=== PATIENT | female | born 1935 | race Caucasian/White ===

== ENCOUNTER 2018-06-08 08:56 | Emergency (ER) | payer MEDICARE, MEDICAID ==
[~2018-06-08] VITALS: Ht 162.6 cm; Wt 77.1 kg
[2018-06-08 09:26] LABS: HEMATOCRIT 39 % (35-52); HEMOGLOBIN 13.1 G/DL (11.5-16.0); LYMPHOCYTES % (AUTO) 16 % (12-44); MEAN CORPUSCULAR HEMOGLOBIN 30 PG (25-34); MEAN CORPUSCULAR HGB CONC 34 G/DL (32-36); MEAN CORPUSCULAR VOLUME 88 FL (80-99); NEUTROPHILS % (AUTO) 69 % (42-75); PLATELET COUNT 314 10^3/uL (130-400); RED CELL DISTRIBUTION WIDTH 13.3 % (10.0-14.5); WHITE BLOOD COUNT 10.6 10^3/uL (4.3-11.0)
[2018-06-08 09:27] LABS: BASOPHILS # (AUTO) 0.1 10^3/uL (0.0-0.1); BASOPHILS % (AUTO) 1 % (0-10); EOSINOPHILS # (AUTO) 0.4 10^3/uL (0.0-0.3); EOSINOPHILS % (AUTO) 4 % (0-10); LYMPHOCYTES # (AUTO) 1.7 X 10^3 (1.0-4.0); MONOCYTES % (AUTO) 10 % (0-12); NEUTROPHILS # (AUTO) 7.4 X 10^3 (1.8-7.8)
--- NOTE | 2018-06-08 09:44 | Diagnostic Imaging Report ---
INDICATION: Altered mental status Portable chest obtained at 9:19 a.m. There is cardiomegaly with central vascular congestion. There is some bibasilar infiltrate. There is no pneumothorax or gross pleural fluid. IMPRESSION: Cardiomegaly with central vascular congestion with some bibasilar infiltrates. Followup is recommended. Dictated by: Dictated on workstation # [id number]
[2018-06-08 09:45] VITALS: BP 139/71
--- NOTE | 2018-06-08 09:58 | Diagnostic Imaging Report ---
CLINICAL INDICATION: Patient with altered mental status. EXAM: Axial CT scan of the brain performed without IV contrast. COMPARISON: None. FINDINGS: There are diffuse patchy and confluent areas of low-attenuation white matter changes seen throughout both cerebral hemispheres with the left frontal lobe affected the most. 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 There is brain parenchymal volume loss with the cerebellum affected the most. There is no brain herniation or midline shift. There is no hydrocephalus. Basal cisterns are unremarkable. The extra cranial soft tissue, skull, and orbits are unremarkable. There is minimal ethmoid sinus mucosal thickening. 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 IMPRESSION: 1: There is no definite CT evidence of interval acute cerebral infarction, intracranial hemorrhage, or mass seen. Given the diffuse low attenuation changes throughout the brain parenchyma which can obscure more subtle findings, if there is clinical concern for acute cerebral infarction, MRI of the brain would better evaluate. 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 The results of this report were discussed with Dr. Shamar Lewis via the telephone on 06/08/2018 at 0940 hrs. Dictated by: Dictated on workstation # [id number]
[2018-06-08 10:02] LABS: PROTHROMBIN TIME PATIENT 13.4 SEC (12.2-14.7)
[2018-06-08 10:15] VITALS: BP 117/63
[2018-06-08 10:15] LABS: BILIRUBIN,TOTAL 0.4 MG/DL (0.1-1.0); CALCIUM 9.5 MG/DL (8.5-10.1); CREATININE SERUM 0.92 MG/DL (0.60-1.30); TOTAL PROTEIN 7.2 GM/DL (6.4-8.2)
[2018-06-08 10:45] VITALS: BP 117/54
[2018-06-08] MEDS ORDERED: LORA10TA7 PO (11:03)
[2018-06-08] MEDS ORDERED: LEVO88TA54 PO (11:03)
[2018-06-08] MEDS ORDERED: FLUT16SP22 (11:03)
[2018-06-08] MEDS ORDERED: OMEP20CA12 (11:03)
[2018-06-08] MEDS ORDERED: ATOR10TA66 PO (11:03)
[2018-06-08] MEDS ORDERED: ASPI-983 PO (11:03)
[2018-06-08] MEDS ORDERED: MECL-106 PO (11:03)
[2018-06-08] MEDS ORDERED: CITA20TA9 PO (11:03)
[2018-06-08] MEDS ORDERED: PRAM0.257 PO (11:03)
[2018-06-08] MEDS ORDERED: LORA1TAB PO (11:03)
[2018-06-08] MEDS ORDERED: LISI-552 PO (11:03)
[2018-06-08 11:07] LABS: CLARITY,URINE CLEAR; COLOR,URINE YELLOW; GLUCOSE, URINE (UA) NEGATIVE (NEGATIVE); PROTEIN,URINE NEGATIVE (NEGATIVE)
[2018-06-08 11:08] LABS: BILIRUBIN,URINE NEGATIVE (NEGATIVE); KETONES,URINE NEGATIVE (NEGATIVE); LEUKOCYTE ESTERASE ,URINE NEGATIVE (NEGATIVE); NITRITE,URINE NEGATIVE (NEGATIVE); SQUAMOUS EPITHELIAL CELL,UR 0-2 /HPF; UROBILINOGEN,URINE 0.2 MG/DL (NORMAL); WBC,URINE 0-2 /HPF
--- NOTE | 2018-06-08 12:07 | ED General ---
General Chief Complaint: Altered Mental Status Stated Complaint: RT ARM PAIN Nursing Triage Note: PT FELL AT HOME AND THE RP STATEDSHE WAS NOT USING HER RIGHT ARM AFTER THE FALL. PT ARRIVEDAND WAS USING ALL LIMBS AND ALLERT AND ORIENTED X 4. Nursing Sepsis Screen: No Definite Risk Source of Information: Patient, Caregiver, EMS, Family Exam Limitations: Language Barrier, Physical Impairments, Other (hard of hearing) History of Present Illness Date Seen by Provider: Jun 08, 2018 Time Seen by Provider: 09:00 Initial Comments Patient is a 82-year-old female who is hard of hearing with impaired speech who presents with accidental fall from standing. Patient states her left leg gave out while she was using her walker. She reports fall but denies hitting her head , headache loss of consciousness or injury. She denies acute motor weakness or loss of sensation, dizziness lightheadedness, chest pain pain palpitations or shortness of breath preceding event. He states her left leg frequently gives out. 911 contacted for lift assist. EMS states that patient was not acting right according to nieces description. Stroke activation on patient ED arrival. According to additional family including daughter at bedside, patient is at baseline mental status.. Timing/Duration: 1/2 Hour Modifying Factors: improves with Movement Associated Systoms: Denies Symptoms Allergies and Home Medications Allergies Coded Allergies: No Known Drug Allergies (Unverified , 06/08/18) Home Medications Aspirin 81 Mg Tablet.dr, 81 MG PO DAILY, (Reported) Atorvastatin Calcium 10 Mg Tablet, 10 MG PO DAILY, (Reported) Citalopram Hydrobromide 20 Mg Tablet, 20 MG PO DAILY, (Reported) Lisinopril 20 Mg Tablet, 10 MG PO DAILY, (Reported) Loratadine 10 Mg Tablet, 10 MG PO DAILY, (Reported) Lorazepam 1 Mg Tablet, 1 MG PO PRN, (Reported) Meclizine HCl 25 Mg Tablet, 25 MG PO TID, (Reported) Pramipexole Di-HCl 0.25 Mg Tablet, 0.25 MG PO DAILY, (Reported) Patient Home Medication List Home Medication List Reviewed: Yes Review of Systems Review of Systems Constitutional: no symptoms reported EENTM: see HPI Respiratory: no symptoms reported Cardiovascular: no symptoms reported Gastrointestinal: no symptoms reported Genitourinary: no symptoms reported Musculoskeletal: no symptoms reported, see HPI, joint pain Psychiatric/Neurological: No Symptoms Reported Hematologic/Lymphatic: No Symptoms Reported Immunological/Allergic: no symptoms reported Past Jzoxqpi-Exiuyh-Plqwdw Hx Past Med/Social Hx: Reviewed Nursing Past Med/Soc Hx Patient Social History Alcohol Use: Denies Use Recreational Drug Use: No Smoking Status: Former Smoker 2nd Hand Smoke Exposure: Yes Recent Foreign Travel: No Contact w/Someone Who Travel: No Recent Infectious Disease Expo: No Recent Hopitalizations: No Physical Abuse: No Sexual Abuse: No Mistreated: No Fear: No Seasonal Allergies Seasonal Allergies: No Past Medical History Adenoidectomy, Hysterectomy, Joint Replacement, Tonsillectomy Respiratory: No Cardiac: No 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 oz. 77.944222yh; BMI Method:Stated General Appearance: No Apparent Distress Eyes: Bilateral Eye Normal Inspection, Bilateral Eye PERRL, Bilateral Eye EOMI HEENT: PERRL/EOMI Neck: Full Range of Motion Respiratory: Chest Non Tender, Lungs Clear Cardiovascular: Regular Rate, Rhythm Gastrointestinal: Normal Bowel Sounds, No Organomegaly, No Pulsatile Mass, Non Tender, Soft Rectal: Normal Exam Neurologic/Psychiatric: Alert, Oriented x3, No Motor/Sensory Deficits; No Abnormal Gait Skin: Normal Color Progress/Results/Core Measures Suspected Sepsis Recent Fever Within 48 Hours: No Infection Criteria Present: None New/Unexplained Altered Menta: No Sepsis Screen: No Definite Risk SIRS Temperature:98.6 Pulse: 62 Respiratory Rate: 18 Laboratory Tests 06/08/18 09:00: White Blood Count 10.6 Blood Pressure 117 /54 Mean: 75 Laboratory Tests 06/08/18 09:00: Platelet Count 314 06/08/18 09:35: Creatinine 0.92, INR Comment 1.0, Total Bilirubin 0.4 Results/Orders Lab Results Laboratory Tests Test 06/08/18 09:00 06/08/18 09:35 06/08/18 10:22 Range/Units White Blood Count 10.6 4.3-11.0 10^3/uL Red Blood Count 4.39 4.35-5.85 10^6/uL Hemoglobin 13.1 11.5-16.0 G/DL Hematocrit 39 35-52 % Mean Corpuscular Volume 88 80-99 FL Mean Corpuscular Hemoglobin 30 25-34 PG Mean Corpuscular Hemoglobin Concent 34 32-36 G/DL Red Cell Distribution Width 13.3 10.0-14.5 % Platelet Count 314 130-400 10^3/uL Mean Platelet Volume 11.0 H 7.4-10.4 FL Neutrophils (%) (Auto) 69 42-75 % Lymphocytes (%) (Auto) 16 12-44 % Monocytes (%) (Auto) 10 0-12 % Eosinophils (%) (Auto) 4 0-10 % Basophils (%) (Auto) 1 0-10 % Neutrophils # (Auto) 7.4 1.8-7.8 X 10^3 Lymphocytes # (Auto) 1.7 1.0-4.0 X 10^3 Monocytes # (Auto) 1.0 0.0-1.0 X 10^3 Eosinophils # (Auto) 0.4 H 0.0-0.3 10^3/uL Basophils # (Auto) 0.1 0.0-0.1 10^3/uL Prothrombin Time 13.4 12.2-14.7 SEC INR Comment 1.0 0.8-1.4 Activated Partial Thromboplast Time 26 24-35 SEC Sodium Level 134 L 135-145 MMOL/L Potassium Level 5.0 3.6-5.0 MMOL/L Chloride Level 98 98-107 MMOL/L Carbon Dioxide Level 17 L 21-32 MMOL/L Anion Gap 19 H 5-14 MMOL/L Blood Urea Nitrogen 13 7-18 MG/DL Creatinine 0.92 0.60-1.30 MG/DL Estimat Glomerular Filtration Rate 59 BUN/Creatinine Ratio 14 Glucose Level 91 70-105 MG/DL Calcium Level 9.5 8.5-10.1 MG/DL Corrected Calcium 9.5 8.5-10.1 MG/DL Total Bilirubin 0.4 0.1-1.0 MG/DL Aspartate Amino Transf (AST/SGOT) 20 5-34 U/L Alanine Aminotransferase (ALT/SGPT) 19 0-55 U/L Alkaline Phosphatase 77 40-136 U/L B-Type Natriuretic Peptide 311.8 H <100.0 PG/ML Total Protein 7.2 6.4-8.2 GM/DL Albumin 4.0 3.2-4.5 GM/DL Urine Color YELLOW Urine Clarity CLEAR Urine pH 7.0 5-9 Urine Specific [place] <1.005 1.016-1.022 Urine Protein NEGATIVE NEGATIVE Urine Glucose (UA) NEGATIVE NEGATIVE Urine Ketones NEGATIVE NEGATIVE Urine Nitrite NEGATIVE NEGATIVE Urine Bilirubin NEGATIVE NEGATIVE Urine Urobilinogen 0.2 NORMAL MG/DL Urine Leukocyte Esterase NEGATIVE NEGATIVE Urine RBC (Auto) 2+ H NEGATIVE Urine RBC 10-25 H /HPF Urine WBC 0-2 /HPF Urine Squamous Epithelial Cells 0-2 /HPF Urine Crystals NONE /LPF Urine Bacteria NONE /HPF Urine Casts NONE /LPF Urine Mucus NEGATIVE /LPF Urine Culture Indicated NO My Orders Orders - TRUNG BARRERA DO Ct Head Wo-R/O Stroke (06/08/18 09:05) Cbc With Automated Diff (06/08/18 09:05) Comprehensive Metabolic Panel (06/08/18 09:05) Protime With Inr (06/08/18 09:05) Partial Thromboplastin Time (06/08/18 09:05) Ekg Tracing (06/08/18 09:05) Ua Culture If Indicated (06/08/18 09:05) Chest 1 View Ap/Pa Only (06/08/18 09:05) Accucheck Fasting (06/08/18 09:05) Thyroid Stimulating Hormone (06/08/18 09:09) BNP (06/08/18 11:09) Furosemide Injection (Lasix Injection) (06/08/18 12:15) Vital Signs/I&O 06/08/18 06/08/18 06/08/18 06/08/18 08:56 09:45 10:15 10:45 Temp 98.6 Pulse 72 64 62 62 Resp 18 18 16 18 B/P (MAP) 127/61 (83) 139/71 (93) 117/63 (81) 117/54 (75) Pulse Ox 94 94 94 O2 Delivery Room Air Room Air Room Air Room Air Capillary Refill : Less Than 3 Seconds Blood Pressure Mean: 75 ECG Initial ECG Rhythm: Normal Sinus Initial ECG Intervals: Normal Initial ECG Impression: Normal Diagnostic Imaging Diagonstic Imaging: Xray (possible pulmonary vascular congestion), CT (no acute intracranial findings per radiology report) Departure Communication (Admissions) Patient does not have any acute injury or focal neurologic deficits suggestive of stroke.. Lab work reviewed and is relatively benign with the exception of mild pulmonary vascular congestion on chest x-ray and an elevation of BNP. Patient is not dyspneic, hypoxic and has clear breath sounds. Only confirm that she has a prior diagnosis of congestive heart failure. Single dose of Lasix given. Patient is able to ambulate with a steady gait during the ED stay. Will discharge home with PCP follow-up in 2 days for reevaluation. Return depressions reviewed. Family verbalized understanding. Discharge instructions prior to departure. Pseudomonal Risk: No known risk Impression Primary Impression: Altered mental status, unspecified Additional Impression: Congestive heart failure Disposition: 01 HOME, SELF-CARE Condition: Stable Departure-Patient Inst. Referrals: CAMRON CLEMENT DO (PCP) Primary Care Physician Add. Discharge Instructions: Please take newly prescribed medication as directed and follow-up with your PCP in 2 days for reevaluation. Continue to use home walker. Return to the ED if there are worsening symptoms. All discharge instructions reviewed with patient and/or family. Voiced understanding. Scripts Furosemide (Lasix) 20 Mg Tablet 20 MG PO BID WITH MEALS PRN for SHORTNESS OF BREATH, #4 TAB Prov: TRUNG BARRERA DO 06/08/18 TRUNG BARRERA DO Jun 08, 2018 12:07
[2018-06-08] MEDS ORDERED: FURO-125 PO (12:14)
[2018-06-08] MEDS ORDERED: FUROSEMIDE 40 MG/4 ML INJ (LASIX) IVP ONE (12:15)
[2018-06-08 12:30] VITALS: BP 138/72
== END 2018-06-08 12:30 | disposition home or self-care (01) ==
LOC: EDUNIT# 08:56 → ER FS 08:57
DX: R41.82 Altered mental status, unspecified (principal); I50.9 Heart failure, unspecified; F41.9 Anxiety disorder, unspecified; F32.9 Major depressive disorder, single episode, unspecified; Z79.82 Long term (current) use of aspirin; Z87.891 Personal history of nicotine dependence; Z90.89 Acquired absence of other organs; Z90.710 Acquired absence of both cervix and uterus; Z85.038 Personal history of other malignant neoplasm of large intestine
CPT/HCPCS: 36415; 70450; 71045; 80053; 81000; 83880; 84443; 85025; 85610; 85730

== ENCOUNTER 2020-02-03 13:48 | Emergency (ER) | payer MEDICARE, MEDICAID ==
[~2020-02-03] VITALS: Ht 162.6 cm; Wt 81.8 kg
[2020-02-03] MEDS ORDERED: morphine INJ 10 MG/ML 1ML (SYR OR VIAL) IVP STA (13:58)
[2020-02-03] MEDS ORDERED: ONDANSETRON 4 MG/2 ML (SDV) Z0FRAN IVP ONE (14:00)
--- NOTE | 2020-02-03 14:02 | ED Fall/Injury ---
General Stated Complaint: FALL Source: patient, RN/MD, EMS, RN notes reviewed, EMS notes reviewed, old records Exam Limitations: no limitations, language barrier History of Present Illness Date Seen by Provider: Feb 03, 2020 Time Seen by Provider: 13:55 Initial Comments This patient is a 89-year-old female with a history of falls a history of left hip fracture in the past presents to the emergency department with fall. Patient was found sitting on her bottom on the floor. It fell out of her chair. Patient does have an outwardly rotated left lower extremity with pain to the left hip. We'll do medical evaluation treatment is needed. Occurred: just prior to arrival Injuries/Pain Location: lower extremity Context: unknown, lost balance Loss of Consciousness: no loss of consciousness Allergies and Home Medications Allergies Coded Allergies: No Known Drug Allergies (Unverified , 06/08/18) Home Medications Albuterol Sulfate 2.5 Mg/0.5 Ml Vial.neb, 2.5 MG NEB Q6H, (Reported) MIXES ALBUTEROL AND IPRATROPIUM TOGETHER IN THE NEBULIZER FOR EACH TREATMENT Aspirin 81 Mg Tablet.dr, 81 MG PO DAILY, (Reported) Atorvastatin Calcium 10 Mg Tablet, 10 MG PO HS, (Reported) Cefdinir 300 Mg Capsule, 300 MG PO BID Prescribed by: LAURIE MARTÍNEZ on 11/14/19 1044 Citalopram Hydrobromide 20 Mg Tablet, 20 MG PO HS, (Reported) Fluticasone Propionate 16 Gm [place].susp, 1 SPRAY NSEACH DAILY, (Reported) Ipratropium [place] 0.2 Mg/1 Ml Solution, 0.2 MG IH Q6H, (Reported) MIXES ALBUTEROL AND IPRATROPIUM TOGETHER IN THE NEBULIZER FOR EACH TREATMENT Levothyroxine Sodium 88 Mcg Tablet, 88 MCG PO DAILY, (Reported) Lisinopril 20 Mg Tablet, 20 MG PO DAILY, (Reported) Loratadine 10 Mg Tablet, 10 MG PO DAILY, (Reported) Lorazepam 1 Mg Tablet, 1 MG PO Q8H PRN for ANXIETY, (Reported) Omeprazole 20 Mg Capsule.dr, 20 MG PO DAILY, (Reported) Pramipexole Di-HCl 0.25 Mg Tablet, 0.25 MG PO HS, (Reported) Patient Home Medication List Home Medication List Reviewed: Yes Review of Systems Review of Systems Constitutional: No no symptoms reported; see HPI; No chills, No diaphoresis, No dizziness, No fever, No malaise, No weakness, No weight gain, No weight loss, No other Eyes: Denies No Symptoms Reported, Denies See HPI, Denies Blindness, Denies Blurred Vision, Denies Drainage, Denies Decreased Acuity, Denies Foreign Body Sensation, Denies Inflammation, Denies Pain, Denies Photophobia, Denies Previous Injury, Denies Shadows, Denies Tunnel Vision, Denies Vision Changes, Denies Contact Lenses, Denies Glasses, Denies Other Ears, Nose, Mouth, Throat: denies no symptoms reported, denies see HPI, denies ear pain, denies ear discharge, denies nose pain, denies nose discharge, denies epistaxis, denies mouth pain, denies mouth swelling, denies loose teeth, denies throat pain, denies throat swelling Respiratory: No no symptoms reported, No see HPI, No cough, No dyspnea on exertion, No hemoptysis, No orthopnea, No phlegm, No short of breath, No stridor, No wheezing, No other Cardiovascular: No no symptoms reported, No see HPI, No chest pain, No edema, No Hx of Intervention, No palpitations, No syncope, No vascular heart diseas, No other Gastrointestinal: No RUQ, No LUQ, No RLQ, No LLQ, No no symptoms reported, No see HPI, No abdominal pain, No constipation, No diarrhea, No dysphagia, No hematemesis, No heartburn, No jaundice, No loss of appetite, No melena, No nausea, No vomiting, No other Musculoskeletal: see HPI, joint pain ( rotated and shortened left lower extremity. 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 oz. 77.921675ze; 32.50 BMI Method:Stated General Appearance: WD/WN, no apparent distress Cardiovascular: normal peripheral pulses, regular rate, rhythm, no edema, no gallop, no JVD, no murmur Respiratory: chest non-tender, lungs clear, normal breath sounds, no respiratory distress, no accessory muscle use Gastrointestinal: normal bowel sounds, non tender, soft, no organomegaly, no pulsatile mass Pelvic: normal external exam, normal adnexa, no cerv. motion tender, no masses Extremities: other (decreased range of motion outward rotation of the left lower leg along and shortened. Pain with palpation to the left hip) Progress/Results/Core Measures Results/Orders Lab Results Laboratory Tests Test 02/03/20 14:48 Range/Units My Orders Orders - YUNIOR MUÑOZ MD Cbc With Automated Diff (02/03/20 13:58) Comprehensive Metabolic Panel (02/03/20 13:58) Ed Iv/Invasive Line Start (02/03/20 13:58) Ekg Tracing (02/03/20 13:58) Chest 1 View Ap/Pa Only (02/03/20 13:58) Pelvis With Left Hip 2-3 View (02/03/20 13:58) Morphine Injection (Morphine Injection (02/03/20 13:58) Ondansetron Injection (Zofran Injectio (02/03/20 14:00) Medications Given in ED Current Medications Medications Dose Ordered Sig/Hazel Route Start Time Stop Time Status Last Admin Dose Admin Ondansetron HCl 4 mg ONCE ONCE IVP 02/03/20 14:00 02/03/20 14:01 DC 02/03/20 14:15 4 MG Vital Signs/I&O 02/03/20 13:55 Temp 36.7 Pulse 92 Resp 16 B/P (MAP) 163/71 (101) Pulse Ox 95 O2 Delivery Room Air Progress Progress Note : Time: 15:01 Progress Note IMPRESSION: Left femoral neck fracture. On x-ray. I did discuss at length with Dr. moore orthopedics who is agreed to see the pa donovan is a consult. Patient be transferred to [facility] for Dr. Martínez she said we'll see patient upon arrival. Initial ECG Impression Date: Feb 03, 2020 Initial ECG Impression Time: 14:21 Initial ECG Rate: 81 Initial ECG Rhythm: Normal Sinus Initial ECG Intervals: Normal Initial ECG Impression: Normal Departure Impression Primary Impression: Hip fracture, left Additional Impression: Fall Disposition: XFER SHT-TRM HOSP Condition: Stable Admissions Decision to Admit Reason: Admit from ER (General) Transfer Transfer Reason: Exceeds level of care Time Spoke to Accepting Phy: 15:[address] Martínez will admit the patient via [facility]. Dr. moore orthopedicdylan will consult Transfer Time: 15:02 Transfer Facility: [facility] Method of Transfer: EMS Departure-Patient Inst. Referrals: ANGEL LINDA MD (PCP/Family) Primary Care Physician YUNIOR MUÑOZ MD Feb 03, 2020 14:02
--- NOTE | 2020-02-03 14:17 | NUR ---
2 Liters of oxygen via nc applied due to oxygen saturation decreasing to 88% after morphine was given.
--- NOTE | 2020-02-03 14:38 | Diagnostic Imaging Report ---
INDICATION: Fall. TIME OF EXAM: 2:08 PM Correlation is made with prior chest from 11/11/2019. The heart is enlarged. There may be some infiltrate or atelectasis in the left base near the left heart border. Right lung is clear. No effusion or pneumothorax is detected. IMPRESSION: Cardiomegaly with left basilar infiltrate or atelectasis. Dictated by: Dictated on workstation # [id number]
--- NOTE | 2020-02-03 14:40 | Diagnostic Imaging Report ---
INDICATION: Left hip pain, fall. TIME OF EXAM: 2:03 PM. FINDINGS: AP view of the pelvis and two views of the left hip were obtained. There is an acute fracture involving the left femoral neck. Mild coxa varus deformity is noted. The femoroacetabular alignment is maintained without evidence of dislocation. The rami are intact. There are postop changes to the right hip. IMPRESSION: Left femoral neck fracture. Dictated by: Dictated on workstation # [id number]
[2020-02-03 15:02] LABS: BASOPHILS % (AUTO) 1 % (0-10); EOSINOPHILS % (AUTO) 2 % (0-10); HEMATOCRIT 39 % (35-52); HEMOGLOBIN 12.1 G/DL (11.5-16.0); LYMPHOCYTES % (AUTO) 17 % (12-44); MEAN CORPUSCULAR HEMOGLOBIN 24 PG (25-34); MEAN CORPUSCULAR HGB CONC 31 G/DL (32-36); MEAN CORPUSCULAR VOLUME 78 FL (80-99); MONOCYTES % (AUTO) 7 % (0-12); NEUTROPHILS % (AUTO) 73 % (42-75); PLATELET COUNT 284 10^3/uL (130-400); WHITE BLOOD COUNT 13.5 10^3/uL (4.3-11.0)
[2020-02-03 15:03] LABS: BASOPHILS # (AUTO) 0.1 10^3/uL (0.0-0.1); EOSINOPHILS # (AUTO) 0.3 10^3/uL (0.0-0.3); LYMPHOCYTES # (AUTO) 2.3 X 10^3 (1.0-4.0); MONOCYTES # (AUTO) 0.9 X 10^3 (0.0-1.0); NEUTROPHILS # (AUTO) 9.8 X 10^3 (1.8-7.8)
[2020-02-03 15:32] VITALS: BP 165/86
--- NOTE | 2020-02-03 15:45 | NUR ---
EMS arrived at this time. Report was given and care was transferred at this time.
[2020-02-03 15:49] LABS: SMEAR SCAN COMMENT OK
[2020-02-03 16:20] LABS: CREATININE SERUM 1.05 MG/DL (0.60-1.30); POTASSIUM 4.3 MMOL/L (3.6-5.0)
[2020-02-03 16:21] LABS: ALBUMIN 3.9 GM/DL (3.2-4.5); BILIRUBIN,TOTAL 0.3 MG/DL (0.1-1.0); CALCIUM 9.5 MG/DL (8.5-10.1); TOTAL PROTEIN 7.3 GM/DL (6.4-8.2)
== END 2020-02-03 15:45 | disposition short-term general hospital (02) ==
LOC: EDUNIT# 13:48 → ER FS 13:49
DX: S72.042A Displaced fracture of base of neck of left femur, initial encounter for closed fracture (principal); F41.9 Anxiety disorder, unspecified; F32.9 Major depressive disorder, single episode, unspecified; J44.9 Chronic obstructive pulmonary disease, unspecified; Z80.9 Family history of malignant neoplasm, unspecified; Z85.038 Personal history of other malignant neoplasm of large intestine; Z77.22 Contact with and (suspected) exposure to environmental tobacco smoke (acute) (chronic); Z79.82 Long term (current) use of aspirin; W07.XXXA Fall from chair, initial encounter
CPT/HCPCS: 36415; 71045; 73502; 80053; 85025; 93005

== ENCOUNTER → 2020-02-03 | Outpatient (CLI) | payer OTHER, MEDICARE, MEDICAID ==
[~2020-02-03] MED LIST: ALB0.5V NEB; ASPI-1238 PO; ATOR10TA66 PO; CEFD300C3 PO; CITA20TA9 PO; FLUT16SP22 NSEACH; FURO-125 PO; IPRA0.2S51 IH; LEVO88TA54 PO; LISI-552 PO; LORA-405 PO; LORA10TA7 PO; LORA1TAB PO; MECL-149 PO; OMEP20CA18 PO; PRAM0.257 PO
== END ==
LOC: GIR 17:50
PROVIDERS: ATTEND Internal Medicine
DX: Z20.828 Contact with and (suspected) exposure to other viral communicable diseases (principal)
CPT/HCPCS: 87635

== ENCOUNTER 2020-06-15 15:51 | Emergency (ER) | payer MEDICARE, MEDICAID ==
[~2020-06-15 15:51] MED LIST changes: -LISI-552 PO; +LISI20TA26 PO
--- NOTE | 2020-06-15 16:00 | ED Head Injury ---
General Chief Complaint: Trauma-Non Activation Stated Complaint: FELL, HIT HEAD History of Present Illness Date Seen by Provider: Jun 15, 2020 Time Seen by Provider: 16:00 Initial Comments 84-year-old female presents by private vehicle. Patient was brought in by family. Patient stumbled and fell and hit the back of her head on a car. She has a knot on the back of her head. She had no loss of consciousness. She has no nausea or vomiting or other systemic complaints. Patient does not have any neck pain. Allergies and Home Medications Allergies Coded Allergies: No Known Drug Allergies (Unverified , 06/08/18) Home Medications Albuterol Sulfate 2.5 Mg/0.5 Ml Vial.neb, 2.5 MG NEB Q6H, (Reported) MIXES ALBUTEROL AND IPRATROPIUM TOGETHER IN THE NEBULIZER FOR EACH TREATMENT Aspirin 81 Mg Tablet.dr, 81 MG PO DAILY, (Reported) Atorvastatin Calcium 10 Mg Tablet, 10 MG PO HS, (Reported) Cefdinir 300 Mg Capsule, 300 MG PO BID Prescribed by: LAURIE MARTÍNEZ on 11/14/19 1044 Citalopram Hydrobromide 20 Mg Tablet, 20 MG PO HS, (Reported) Fluticasone Propionate 16 Gm [place].susp, 1 SPRAY NSEACH DAILY, (Reported) Ipratropium [place] 0.2 Mg/1 Ml Solution, 0.2 MG IH Q6H, (Reported) MIXES ALBUTEROL AND IPRATROPIUM TOGETHER IN THE NEBULIZER FOR EACH TREATMENT Levothyroxine Sodium 88 Mcg Tablet, 88 MCG PO DAILY, (Reported) Lisinopril 20 Mg Tablet, 20 MG PO DAILY, (Reported) Loratadine 10 Mg Tablet, 10 MG PO DAILY, (Reported) Lorazepam 1 Mg Tablet, 1 MG PO Q8H PRN for ANXIETY, (Reported) Omeprazole 20 Mg Capsule.dr, 20 MG PO DAILY, (Reported) Pramipexole Di-HCl 0.25 Mg Tablet, 0.25 MG PO HS, (Reported) Patient Home Medication List Home Medication List Reviewed: Yes Review of Systems Review of Systems Constitutional: no symptoms reported Eyes: No Symptoms Reported Ears, Nose, Mouth, Throat: no symptoms reported Respiratory: no symptoms reported Cardiovascular: no symptoms reported Gastrointestinal: no symptoms reported Genitourinary: no symptoms reported Musculoskeletal: see HPI Skin: see HPI Psychiatric/Neurological: No Symptoms Reported Endocrine: No Symptoms Reported Past Arymzqg-Wcomvw-Texohc Hx Past Med/Social Hx: Reviewed Nursing Past Med/Soc Hx Patient Social History Alcohol Use: Denies Use Smoking Status: Never a Smoker 2nd Hand Smoke Exposure: Yes Recent Hopitalizations: No Seasonal Allergies Seasonal Allergies: No Past Medical History Surgeries: Yes Adenoidectomy, Hysterectomy, Joint Replacement, Tonsillectomy Respiratory: Yes COPD Cardiac: No 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 oz. [id number]; 30.00 BMI Method:Stated General Appearance: WD/WN, no apparent distress HEENT: PERRL/EOMI, other (Small contusion) Neck: full range of motion, supple Cardiovascular: normal peripheral pulses ( left posterior scalp), regular rate, rhythm Respiratory: lungs clear, no respiratory distress, no accessory muscle use Gastrointestinal: non tender, soft Extremities: normal range of motion, non-tender Psychiatric: alert, oriented x 3 Cra[place] Nerves: normal speech, PERRL Motor/Sensory: no motor deficit, no sensory deficit Skin: other (Small contusion left posterior scalp) Progress/Results/Core Measures Results/Orders My Orders Orders - BRADEN DAILEY DO Ct Head Wo (06/15/20 16:02) Vital Signs/I&O 06/15/20 15:58 Temp 37.2 Pulse 77 Resp 18 B/P (MAP) 166/90 (115) Pulse Ox 96 O2 Delivery Room Air Progress Progress Note : Progress Note Patient with negative CT head. Patient with small scalp contusion. Patient stable and will be discharged home Diagnostic Imaging Diagonstic Imaging: CT Plain Films/CT/US/NM/MRI: head Reviewed: Reviewed by Me, Reviewed/Discussed Departure Impression Primary Impression: Fall Qualified Codes: W19.XXXA - Unspecified fall, initial encounter Additional Impression: Contusion of scalp Qualified Codes: S00.03XA - Contusion of scalp, initial encounter Disposition: HOME, SELF-CARE Condition: Stable Departure-Patient Inst. Referrals: ANGEL LINDA MD (PCP/Family) Primary Care Physician Patient Instructions: Minor Head Injury, Adult ED, Contusion (DC) Add. Discharge Instructions: Tylenol or ibuprofen as needed for pain Ice to affected area Follow-up with your primary care provider as needed All discharge instructions reviewed with patient and/or family. Voiced u nderstanding. BRADEN DAILEY DO Jun 15, 2020 16:00
--- NOTE | 2020-06-15 17:34 | Diagnostic Imaging Report ---
PROCEDURE: CT head without contrast. TECHNIQUE: Multiple contiguous axial images were obtained through the brain without the use of intravenous contrast. Auto Exposure Controls were utilized during the CT exam to meet ALARA standards for radiation dose reduction. DATE: June 15, 2020. COMPARISON: CT head June 08, 2018. INDICATION: 84-year-old female, fall. Head trauma. FINDINGS: There is soft tissue swelling posteriorly along the occipital scalp compatible with soft tissue contusion/small hematoma. There is no identified skull fracture. There is nonspecific opacification within the bilateral ethmoidal air cells. There is mucosal thickening of the left maxillary sinus. There is nonspecific opacification in the bilateral mastoid air cells. There is no identified destruction of mastoid air cell septa. There also does appear to be abnormal opacification within both middle ears. There is mild proportional prominence of the ventricles and additional CSF spaces consistent with mild cerebral volume loss. There are areas of low-attenuation in the periventricular and subcortical white matter most likely reflecting mild to moderate changes of chronic small vessel ischemic disease. There is a focal area of very low attenuation in the region of the right basal ganglia most likely relating to a remote prior lacunar infarct. There is no mass effect or midline shift. There is no acute intracranial hemorrhage. There is no abnormal extra-axial fluid collection. IMPRESSION: 1. No identified acute intracranial abnormality. 2. Soft tissue contusion/small hematoma in the region of the left occipital scalp. 3. Mild cerebral volume loss with probable mild to moderate findings of chronic small vessel ischemic disease and remote prior infarct of the right basal ganglia. Dictated by: Dictated on workstation # [id number]
[2020-06-15 17:47] VITALS: BP 162/87
== END 2020-06-15 17:40 | disposition home or self-care (01) ==
LOC: EDUNIT# 15:51 → ER FS 15:52
DX: S00.03XA Contusion of scalp, initial encounter (principal); J44.9 Chronic obstructive pulmonary disease, unspecified; F41.9 Anxiety disorder, unspecified; F32.9 Major depressive disorder, single episode, unspecified; Z85.038 Personal history of other malignant neoplasm of large intestine; Z77.22 Contact with and (suspected) exposure to environmental tobacco smoke (acute) (chronic); Z79.82 Long term (current) use of aspirin; W22.8XXA Striking against or struck by other objects, initial encounter
CPT/HCPCS: 70450

== ENCOUNTER → 2020-07-09 | Outpatient (CLI) | payer MEDICARE, MEDICAID | LOC: WOUNDCARE 09:33 | PROVIDERS: ATTEND Surgery | DX: L89.624 Pressure ulcer of left heel, stage 4 (principal); I70.209 Unspecified atherosclerosis of native arteries of extremities, unspecified extremity; J44.9 Chronic obstructive pulmonary disease, unspecified | CPT/HCPCS: 11043; A6197; G0463 ==

== ENCOUNTER → 2020-07-09 | Outpatient (CLI) | payer MEDICARE, MEDICAID ==
--- NOTE | 2020-07-09 12:08 | Diagnostic Imaging Report ---
INDICATION: Pressure ulcer. COMPARISON: None. FINDINGS: Multiple radiographic views of the left foot were obtained. There is severe hallux valgus deformity. No acute fracture or dislocation is seen. Joint spaces are otherwise maintained. No suspicious lytic or blastic osseous lesion is seen. No unexpected radiopaque foreign bodies are seen. IMPRESSION: 1. No suspicious lytic or blastic osseous lesion. Please note however that osteomyelitis cannot be excluded based on radiographs alone. There is concern for osteomyelitis, MRI is recommended. 2. Severe hallux valgus deformity. 3. No acute fracture or dislocation. Dictated by: Dictated on workstation # [id number]
[2020-07-09 12:16] LABS: BASOPHILS # (AUTO) 0.1 10^3/uL (0.0-0.1); BASOPHILS % (AUTO) 1 % (0-10); EOSINOPHILS # (AUTO) 0.4 10^3/uL (0.0-0.3); EOSINOPHILS % (AUTO) 4 % (0-10); HEMATOCRIT 43 % (35-52); HEMOGLOBIN 13.6 g/dL (11.5-16.0); LYMPHOCYTES # (AUTO) 2.7 10^3/uL (1.0-4.0); LYMPHOCYTES % (AUTO) 25 % (12-44); MEAN CORPUSCULAR HEMOGLOBIN 29 pg (25-34); MEAN CORPUSCULAR HGB CONC 32 g/dL (32-36); MEAN CORPUSCULAR VOLUME 89 fL (80-99); MEAN PLATELET VOLUME 10.7 fL (9.0-12.2); MONOCYTES # (AUTO) 0.8 10^3/uL (0.0-1.0); MONOCYTES % (AUTO) 7 % (0-12); NEUTROPHILS # (AUTO) 6.7 10^3/uL (1.8-7.8); NEUTROPHILS % (AUTO) 63 % (42-75); PLATELET COUNT 243 10^3/uL (130-400); WHITE BLOOD COUNT 10.6 10^3/uL (4.3-11.0)
[2020-07-09 12:30] LABS: POTASSIUM 4.3 MMOL/L (3.6-5.0)
[2020-07-09 12:31] LABS: CALCIUM 9.1 MG/DL (8.5-10.1)
[2020-07-09 12:33] LABS: TOTAL PROTEIN 7.5 GM/DL (6.4-8.2)
[2020-07-09 12:34] LABS: BILIRUBIN,TOTAL 0.6 MG/DL (0.1-1.0)
[2020-07-09 12:36] LABS: CREATININE SERUM 0.97 MG/DL (0.60-1.30); ERYTHROCYTE SEDIMENTATION RATE 19 MM/HR (0-30)
== END ==
LOC: RAD 11:42
PROVIDERS: ATTEND Surgery
DX: L89.624 Pressure ulcer of left heel, stage 4 (principal); M20.12 Hallux valgus (acquired), left foot
CPT/HCPCS: 36415; 73630; 80053; 85025; 85652; 86141

== ENCOUNTER → 2020-07-15 | Outpatient (CLI) | payer MEDICARE, MEDICAID | LOC: WOUNDCARE 13:54 | PROVIDERS: ATTEND Surgery | DX: L89.624 Pressure ulcer of left heel, stage 4 (principal); J44.9 Chronic obstructive pulmonary disease, unspecified; I70.203 Unspecified atherosclerosis of native arteries of extremities, bilateral legs; H91.13 Presbycusis, bilateral | CPT/HCPCS: 11043; A6260; G0463 ==

== ENCOUNTER → 2020-07-21 | Outpatient (CLI) | payer MEDICARE, MEDICAID | LOC: WOUNDCARE 13:06 | PROVIDERS: ATTEND Surgery | DX: I96 Gangrene, not elsewhere classified (principal); L89.624 Pressure ulcer of left heel, stage 4; J44.9 Chronic obstructive pulmonary disease, unspecified; I70.209 Unspecified atherosclerosis of native arteries of extremities, unspecified extremity; H91.13 Presbycusis, bilateral | CPT/HCPCS: 11043; G0463 ==

== ENCOUNTER → 2020-08-06 | Outpatient (CLI) | payer MEDICARE, MEDICAID | LOC: WOUNDCARE 13:48 | PROVIDERS: ATTEND Surgery | DX: I96 Gangrene, not elsewhere classified (principal); L89.624 Pressure ulcer of left heel, stage 4; J44.9 Chronic obstructive pulmonary disease, unspecified; H91.13 Presbycusis, bilateral | CPT/HCPCS: 11042; G0463 ==

== ENCOUNTER → 2020-08-12 | Outpatient (CLI) | payer MEDICARE, MEDICAID | LOC: WOUNDCARE 14:53 | PROVIDERS: ATTEND Surgery | DX: L89.624 Pressure ulcer of left heel, stage 4 (principal); J44.9 Chronic obstructive pulmonary disease, unspecified; H91.13 Presbycusis, bilateral | CPT/HCPCS: 11043; G0463 ==

== ENCOUNTER → 2020-08-27 | Outpatient (CLI) | payer MEDICARE, MEDICAID ==
[~2020-08-27] MED LIST changes: +AMLO5TAB4 PO
== END ==
LOC: WOUNDCARE 14:15
PROVIDERS: ATTEND Surgery
DX: I96 Gangrene, not elsewhere classified (principal); L89.624 Pressure ulcer of left heel, stage 4; J44.9 Chronic obstructive pulmonary disease, unspecified; H91.13 Presbycusis, bilateral
CPT/HCPCS: 11043; G0463

== ENCOUNTER 2020-09-02 22:16 | Emergency (ER) | payer MEDICARE, MEDICAID ==
[~2020-09-02] VITALS: Ht 157.5 cm; Wt 61.0 kg
[~2020-09-02 22:16] MED LIST changes: -AMLO5TAB4 PO
[2020-09-02 22:28] VITALS: BP 183/98
[2020-09-02] MEDS ORDERED: amLODIPine 5 MG (NORVASC) TAB ONE (22:48)
--- NOTE | 2020-09-02 22:50 | ED Cardiac General ---
History of Present Illness General Chief Complaint: Cardiac/General Problems Stated Complaint: HIGH BP Nursing Triage Note: PT TO ROOM FS01 [facility]IA [facility] WITH C/O HYPERTENSION. EMS STATES BP OF 185/104 UPON ARRIVAL. PT STATES THAT SHE HAS NOT C/O. PT DENIES PAIN, CP, SOA. PER EMS, PT FAMILY WANTED PT TRANSPORTED DIRECTLY TO [place] AND WHEN THAT WAS NOT POSSIBLE FAMILY WANTED PT TRANSPORTED TO [place]. EMS STATES THAT THEY INFORMED FAMILY THAT HYPERTENSION COULD BE TREATED AT [facility]. PT STATES UPON ARRIVAL THAT SHE HAS NO HEALTH COMPLAINTS. Source: patient Exam Limitations: other (hearing impaired. Communicates by reading, but able to speak) History of Present Illness Date Seen by Provider: September 02, 2020 Time Seen by Provider: 22:20 Initial Comments 85-year-old female presents via EMS with complaint of high blood pressure. See nurse's note above. On arrival patient without complaint, denies chest pain, shortness of air any difficulty breathing or other concern. Patient states that she feels fine. Allergies and Home Medications Allergies Coded Allergies: No Known Drug Allergies (Unverified , 06/08/18) Home Medications Albuterol Sulfate 2.5 Mg/0.5 Ml Vial.neb, 2.5 MG NEB Q6H, (Reported) MIXES ALBUTEROL AND IPRATROPIUM TOGETHER IN THE NEBULIZER FOR EACH TREATMENT Amlodipine Besylate 5 Mg Tablet, 5 MG PO DAILY Prescribed by: CANDELARIA BUSTAMANTE on 09/02/20 2300 Aspirin 81 Mg Tablet.dr, 81 MG PO DAILY, (Reported) Atorvastatin Calcium 10 Mg Tablet, 10 MG PO HS, (Reported) Cefdinir 300 Mg Capsule, 300 MG PO BID Prescribed by: LAURIE MARTÍNEZ on 11/14/19 1044 Citalopram Hydrobromide 20 Mg Tablet, 20 MG PO HS, (Reported) Fluticasone Propionate 16 Gm [place].susp, 1 SPRAY NSEACH DAILY, (Reported) Ipratropium [place] 0.2 Mg/1 Ml Solution, 0.2 MG IH Q6H, (Reported) MIXES ALBUTEROL AND IPRATROPIUM TOGETHER IN THE NEBULIZER FOR EACH TREATMENT Levothyroxine Sodium 88 Mcg Tablet, 88 MCG PO DAILY, (Reported) Lisinopril 20 Mg Tablet, 20 MG PO DAILY, (Reported) Loratadine 10 Mg Tablet, 10 MG PO DAILY, (Reported) Lorazepam 1 Mg Tablet, 1 MG PO Q8H PRN for ANXIETY, (Reported) Omeprazole 20 Mg Capsule.dr, 20 MG PO DAILY, (Reported) Pramipexole Di-HCl 0.25 Mg Tablet, 0.25 MG PO HS, (Reported) Patient Home Medication List Home Medication List Reviewed: Yes Review of Systems Review of Systems Constitutional: No dizziness, No fever, No malaise EENTM: No Symptoms Reported Respiratory: Cough; Denies Shortness of Air Cardiovascular: Denies Chest Pain, Denies Syncope Gastrointestinal: Denies Abdominal Pain, Denies Vomiting Past Uqfyrqo-Tkmtwi-Jnlhuc Hx Past Med/Social Hx: Reviewed Nursing Past Med/Soc Hx Patient Social History Alcohol Use: Denies Use Smoking Status: Never a Smoker 2nd Hand Smoke Exposure: Yes Recent Infectious Disease Expo: No Recent Hopitalizations: No Seasonal Allergies Seasonal Allergies: No Past Medical History Surgeries: Yes Adenoidectomy, Hysterectomy, Joint Replacement, Tonsillectomy Respiratory: Yes COPD Cardiac: No 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 Genitourinary: No Gastrointestinal: Yes (Colon CA with resection) Musculoskeletal: Yes Arthritis Endocrine: No HEENT: No Hearing Impairment: Hard of Hearing Cancer: Yes Colon Did You Recieve Any Treatments: Yes What Type of Treatment Did You: Surgical Intervention Psychosocial: Yes Anxiety, Depression Integumentary: No Blood Disorders: No Family Medical History Cancer Physical Exam Vital Signs Vital Signs - First Documented 09/02/20 22:28 Temp 36.4 Pulse 83 Resp 17 B/P (MAP) 183/98 (126) O2 Delivery Room Air Capillary Refill : Less Than 3 Seconds Height, Weight, BMI Height: 5'4.00" Weight: 170lbs. oz. 77.528849dx; 24.00 BMI Method:Stated General Appearance: No Apparent Distress, WD/WN Respiratory: Chest Non Tender, Normal Breath Sounds, No Accessory Muscle Use, No Respiratory Distress, Rhonci Cardiovascular: Regular Rate, Rhythm, No Gallop, No JVD, No Murmur Gastrointestinal: Non Tender, Soft Extremity: Normal Inspection, Non Tender Neurologic/Psychiatric: Alert, No Motor/Sensory Deficits, Normal Mood/Affect Skin: Normal Color, Warm/Dry Progress/Results/Core Measures Results/Orders My Orders Orders - CANDELARIA BUSTAMANTE DO Amlodipine Tablet (Norvasc Tablet) (09/02/20 23:00) Amlodipine Tablet (Norvasc Tablet) (09/02/20 22:48) Medications Given in ED Current Medications Medications Dose Ordered Sig/Hazel Route Start Time Stop Time Status Last Admin Dose Admin Amlodipine Besylate 5 mg ONCE ONCE PO 09/02/20 23:00 09/02/20 23:26 DC 09/02/20 22:58 5 MG Vital Signs/I&O 09/02/20 22:28 Temp 36.4 Pulse 83 Resp 17 B/P (MAP) 183/98 (126) O2 Delivery Room Air Blood Pressure Mean: 126 Progress Progress Note : Progress Note no distress, lungs are clear with few rhonchi. No signs of heart failure. Given Norvasc 5 mg and advised to follow-up with her PCP in 1 week to review her blood pressure medications & recommend to check her blood pressure no more than once daily Departure Impression Primary Impression: Hypertension Qualified Codes: I10 - Essential (primary) hypertension Disposition: HOME, SELF-CARE Condition: Stable Departure-Patient Inst. Decision time for Depature: 22:53 Referrals: ANGEL LINDA MD (PCP/Family) Primary Care Physician Patient Instructions: High Blood Pressure (DC) Add. Discharge Instructions: Follow up with Dr Hays next week regarding your blood pressure All discharge instructions reviewed with patient and/or family. Voiced understanding. Scripts Amlodipine Besylate (Norvasc) 5 Mg Tablet 5 MG PO DAILY, #30 TAB Prov: CANDELARIA BUSTAMANTE DO 09/02/20 CANDELARIA BUSTAMANTE DO September 02, 2020 22:50
[2020-09-02] MEDS ORDERED: AMLO5TAB4 PO (23:00)
[2020-09-02] MEDS ORDERED: amLODIPine 5 MG (NORVASC) TAB PO ONE (23:00)
== END 2020-09-02 23:17 | disposition home or self-care (01) ==
LOC: ER FS 22:16 → EDUNIT# 22:16 → ER FS 23:17
DX: I10 Essential (primary) hypertension (principal); R06.89 Other abnormalities of breathing; F41.9 Anxiety disorder, unspecified; F32.9 Major depressive disorder, single episode, unspecified; J44.9 Chronic obstructive pulmonary disease, unspecified; Z77.22 Contact with and (suspected) exposure to environmental tobacco smoke (acute) (chronic); Z79.51 Long term (current) use of inhaled steroids; Z79.899 Other long term (current) drug therapy
CPT/HCPCS: 99283

== ENCOUNTER → 2020-09-24 | Outpatient (CLI) | payer MEDICARE, MEDICAID ==
[~2020-09-24] MED LIST changes: +AMLO5TAB4 PO
== END ==
LOC: WOUNDCARE 09:15
PROVIDERS: ATTEND Surgery
DX: L89.624 Pressure ulcer of left heel, stage 4 (principal); J44.9 Chronic obstructive pulmonary disease, unspecified; H91.13 Presbycusis, bilateral; I96 Gangrene, not elsewhere classified
CPT/HCPCS: 99212

== ENCOUNTER → 2020-09-29 | Outpatient (CLI) | payer MEDICARE, MEDICAID | LOC: WOUNDCARE 10:11 | PROVIDERS: ATTEND Surgery | DX: I96 Gangrene, not elsewhere classified (principal); L89.624 Pressure ulcer of left heel, stage 4; J44.9 Chronic obstructive pulmonary disease, unspecified; H91.13 Presbycusis, bilateral | CPT/HCPCS: 99213 ==

== ENCOUNTER → 2020-10-15 | Outpatient (CLI) | payer MEDICARE, MEDICAID | LOC: WOUNDCARE 14:49 | PROVIDERS: ATTEND Surgery | DX: L89.624 Pressure ulcer of left heel, stage 4 (principal); J44.9 Chronic obstructive pulmonary disease, unspecified; H91.13 Presbycusis, bilateral; I96 Gangrene, not elsewhere classified | CPT/HCPCS: 11042; A6197; G0463 ==

== ENCOUNTER → 2020-11-09 | Outpatient (CLI) | payer MEDICARE, MEDICAID | LOC: WOUNDCARE 12:43 | PROVIDERS: ATTEND Surgery | DX: L89.624 Pressure ulcer of left heel, stage 4 (principal); J44.9 Chronic obstructive pulmonary disease, unspecified; H91.13 Presbycusis, bilateral | CPT/HCPCS: 99212 ==

== ENCOUNTER 2022-07-13 08:32 | Emergency (ER) | payer MEDICARE, MEDICAID ==
[2022-07-13 08:48] LABS: BILIRUBIN,URINE NEGATIVE (NEGATIVE); CLARITY,URINE CLEAR; COLOR,URINE YELLOW; GLUCOSE, URINE (UA) NEGATIVE (NEGATIVE); KETONES,URINE NEGATIVE (NEGATIVE); LEUKOCYTE ESTERASE ,URINE 1+ (NEGATIVE); NITRITE,URINE NEGATIVE (NEGATIVE); PH,URINE 5.5 (5-9); PROTEIN,URINE NEGATIVE (NEGATIVE)
[2022-07-13 08:56] LABS: BACTERIA,URINE TRACE /HPF; RBC,URINE RARE /HPF
[2022-07-13 08:59] LABS: BASOPHILS # (AUTO) 0.1 10^3/uL (0.0-0.1); BASOPHILS % (AUTO) 1 % (0-10); EOSINOPHILS # (AUTO) 0.2 10^3/uL (0.0-0.3); EOSINOPHILS % (AUTO) 2 % (0-10); HEMATOCRIT 42 % (35-52); HEMOGLOBIN 12.9 g/dL (11.5-16.0); LYMPHOCYTES # (AUTO) 2.8 10^3/uL (1.0-4.0); LYMPHOCYTES % (AUTO) 21 % (12-44); MEAN CORPUSCULAR HEMOGLOBIN 25 pg (25-34); MEAN CORPUSCULAR HGB CONC 31 g/dL (32-36); MEAN CORPUSCULAR VOLUME 82 fL (80-99); MEAN PLATELET VOLUME 9.9 fL (9.0-12.2); MONOCYTES # (AUTO) 0.9 10^3/uL (0.0-1.0); MONOCYTES % (AUTO) 6 % (0-12); NEUTROPHILS # (AUTO) 9.6 10^3/uL (1.8-7.8); NEUTROPHILS % (AUTO) 70 % (42-75); PLATELET COUNT 410 10^3/uL (130-400); WHITE BLOOD COUNT 13.7 10^3/uL (4.3-11.0)
[2022-07-13 09:14] LABS: POTASSIUM 4.4 MMOL/L (3.6-5.0)
[2022-07-13 09:15] LABS: CALCIUM 9.9 MG/DL (8.5-10.1); CREATININE SERUM 0.96 MG/DL (0.60-1.30)
--- NOTE | 2022-07-13 09:32 | Diagnostic Imaging Report ---
Indication: Fall with bruising in the left rib region. Time of Exam: 9:08 AM Correlation is made with prior chest from 02/03/2020. Heart remains enlarged. There is some infiltrate in the right base medially. A left base is largely obscured by the enlarged heart. There is some questionable trace left pleural fluid. The mid and upper lung padilla are clear. There is no pneumothorax identified. Osseous structures are unremarkable. IMPRESSION: Cardiomegaly with patchy infiltrate or atelectasis in the right base. There is also questionable minimal left pleural fluid. Dictated by: Dictated on workstation # [id number]
[2022-07-13] MEDS ORDERED: cefTRIAXone 1 GM PRE-MIX 50 ML IV STA (09:41)
--- NOTE | 2022-07-13 10:00 | ED General ---
General Chief Complaint: General Problems/Pain Stated Complaint: FALL; GENERAL WEAKNESS Nursing Triage Note: PTS FAMILY/CAREGIVER REPORTS THE PT FELL ON MONDAY AND HAS BRUISING TO HER LEFT UPPER RIB AREA. FAMILY ALSO REPORTS THE PT HAS BEEN WEAKER THAN NORMAL AND REQUIRING MORE ASSITANCE WITH ADL'S. Source of Information: Patient, Family Exam Limitations: Physical Impairments (Severe hearing deficit. Requires writing.) History of Present Illness Date Seen by Provider: Jul 13, 2022 Time Seen by Provider: 08:37 Initial Comments This 87-year-old woman presents to the emergency room with complaints of global weakness. Family reported there was bruising in her left upper chest but patient denies any tenderness here or pain with breathing. She has had some recent diarrhea. She has COPD and uses nebulizer treatments and oxygen at night. She has had a recent urinary tract infection for which she took Cipro. We checked with the clinic to determine if a culture was available. The urinalysis was not done at Dr. Linda's clinic so no culture was available. Her caregiver is her niece Cami [phone]. She is the primary historian. Patient is extremely hard of hearing and requires writing to communicate. Patient complains of pain in her bilateral wrist from carpal tunnel syndrome but otherwise voices no complaints herself. Allergies and Home Medications Allergies Coded Allergies: No Known Drug Allergies (Unverified , 06/08/18) Patient Home Medication List Home Medication List Reviewed: Yes Albuterol Sulfate (Albuterol Sulfate) 2.5 Mg/0.5 Ml Vial.neb, 2.5 MG NEB Q6H, (Reported) Entered as Reported by: KAE CHOWDHURY on 11/11/19 1042 Amlodipine Besylate (Norvasc) 5 Mg Tablet, 5 MG PO DAILY Prescribed by: CANDELARIA BUSTAMANTE on 09/02/20 2300 Aspirin (Aspirin EC) 81 Mg Tablet.dr, 81 MG PO DAILY, (Reported) Entered as Reported by: KERMIT POWELL on 06/08/18 1103 Atorvastatin Calcium (Atorvastatin Calcium) 10 Mg Tablet, 10 MG PO HS, (Reported) Entered as Reported by: KERMIT POWELL on 06/08/18 1103 Azithromycin (Azithromycin) 250 Mg Tablet, 250 MG PO UD Prescribed by: PROMISE MCKNIGHT on 07/13/22 1002 Cefdinir (Cefdinir) 300 Mg Capsule, 300 MG PO BID Prescribed by: LAURIE MARTÍNEZ on 11/14/19 1044 Cefdinir (Cefdinir) 300 Mg Capsule, 300 MG PO BID Prescribed by: PROMISE MCKNIGHT on 07/13/22 1002 Citalopram Hydrobromide (Citalopram HBr) 20 Mg Tablet, 20 MG PO HS, (Reported) Entered as Reported by: KERMIT POWELL on 06/08/18 110 Fluticasone Propionate (Fluticasone Propionate) 16 Gm [place].susp, 1 SPRAY NSEACH DAILY, (Reported) Entered as Reported by: KERMIT POWELL on 06/08/18 110 Ipratropium Early (Ipratropium Early) 0.2 Mg/1 Ml Solution, 0.2 MG IH Q6H, (Reported) Entered as Reported by: KAE CHOWDHURY on 11/11/19 1042 Levothyroxine Sodium (Levothyroxine Sodium) 88 Mcg Tablet, 88 MCG PO DAILY, (Reported) Entered as Reported by: KERMIT POWELL on 06/08/18 110 Lisinopril (Lisinopril) 20 Mg Tablet, 20 MG PO DAILY, (Reported) Entered as Reported by: KAE CHOWDHURY on 11/11/19 1036 Loratadine (Loratadine) 10 Mg Tablet, 10 MG PO DAILY, (Reported) Entered as Reported by: KERMIT POWELL on 06/08/18 110 Lorazepam (Ativan) 1 Mg Tablet, 1 MG PO Q8H PRN for ANXIETY, (Reported) Entered as Reported by: KAE CHOWDHURY on 11/11/19 1036 Omeprazole (Omeprazole) 20 Mg Capsule.dr, 20 MG PO DAILY, (Reported) Entered as Reported by: KERMIT POWELL on 06/08/18 110 Pramipexole Di-HCl (Pramipexole Dihydrochloride) 0.25 Mg Tablet, 0.25 MG PO HS, (Reported) Entered as Reported by: KERMIT POWELL on 06/08/18 110 Review of Systems Review of Systems Constitutional: see HPI EENTM: no symptoms reported Respiratory: no symptoms reported Cardiovascular: no symptoms reported Gastrointestinal: no symptoms reported Genitourinary: see HPI : No Musculoskeletal: see HPI Skin: no symptoms reported Psychiatric/Neurological: No Symptoms Reported Hematologic/Lymphatic: No Symptoms Reported Past Fuvyplc-Sqagus-Yhwqtv Hx Patient Social History Tobacco Use?: No Use of E-Cig and/or Vaping dev: No Substance use?: No Alcohol Use?: No Pt feels they are or have been: No Immunizations Up To Date First/Initial COVID19 Vaccinat: NO Second COVID19 Vaccination Sebastian: NO Seasonal Allergies Seasonal Allergies: No Past Medical History Surgeries: Yes Abdominal (Partial colectomy), Adenoidectomy, Hysterectomy, Joint Replacement, Tonsillectomy Respiratory: Yes COPD Cardiac: Yes Hypertension Neurological: No 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[employer] History: Hysterectomy Genitourinary: No Gastrointestinal: Yes (Colon CA with resection) Musculoskeletal: Yes Arthritis Endocrine: Yes Hypothyroidsim HEENT: No Hearing Impairment: Hard of Hearing Cancer: Yes Colon Did You Recieve Any Treatments: Yes What Type of Treatment Did You: Surgical Intervention Psychosocial: Yes Anxiety, Depression Integumentary: No Blood Disorders: No Family Medical History Cancer Physical Exam Vital Signs Vital Signs - First Documented 07/13/22 08:40 Temp 36.5 Pulse 84 Resp 16 B/P (MAP) 130/69 (89) Pulse Ox 96 O2 Delivery Room Air Capillary Refill : Less Than 3 Seconds Height, Weight, BMI Height: 5'4.00" Weight: 170lbs. oz. 77.759713nz; 24.00 BMI Method:Stated General Appearance: No Apparent Distress, WD/WN HEENT: PERRL/EOMI, Pharynx Normal (Mucous membranes moist), TM Abnormal (L) (Cerumen impaction of left ear) Respiratory: Lungs Clear, No Respiratory Distress; No Crackles; Decreased Breath Sounds (On the left) Cardiovascular: Regular Rate, Rhythm, No Edema, No Murmur Gastrointestinal: Normal Bowel Sounds, Non Tender, Soft Extremity: Normal Inspection, No Pedal Edema, Other (Soreness of the wrist r eportedly from carpal tunnel) Neurologic/Psychiatric: Alert, Oriented x3, Normal Mood/Affect, Other (Very hard of hearing. Otherwise, no focal neurologic deficits) Skin: Normal Color, Warm/Dry Progress/Results/Core Measures Suspected Sepsis SIRS Temperature: Pulse: 84 Respiratory Rate: 16 Laboratory Tests 07/13/22 08:41: White Blood Count 13.7H Blood Pressure 130 /69 Mean: 89 Laboratory Tests 07/13/22 08:41: Creatinine 0.96, Platelet Count 410H Results/Orders Lab Results Laboratory Tests Test 07/13/22 08:40 07/13/22 08:41 Range/Units Urine Color YELLOW Urine Clarity CLEAR Urine pH 5.5 5-9 Urine Specific Oscar >=1.030 1.016-1.022 Urine Protein NEGATIVE NEGATIVE Urine Glucose (UA) NEGATIVE NEGATIVE Urine Ketones NEGATIVE NEGATIVE Urine Nitrite NEGATIVE NEGATIVE Urine Bilirubin NEGATIVE NEGATIVE Urine Urobilinogen 0.2 < = 1.0 MG/DL Urine Leukocyte Esterase 1+ H NEGATIVE Urine RBC (Auto) NEGATIVE NEGATIVE Urine RBC RARE /HPF Urine WBC 10-25 H /HPF Urine Squamous Epithelial Cells 2-5 /HPF Urine Crystals NONE /LPF Urine Bacteria TRACE /HPF Urine Casts NONE /LPF Urine Mucus NEGATIVE /LPF Urine Culture Indicated YES White Blood Count 13.7 H 4.3-11.0 10^3/uL Red Blood Count 5.16 H 3.80-5.11 10^6/uL Hemoglobin 12.9 11.5-16.0 g/dL Hematocrit 42 35-52 % Mean Corpuscular Volume 82 80-99 fL Mean Corpuscular Hemoglobin 25 25-34 pg Mean Corpuscular Hemoglobin Concent 31 L 32-36 g/dL Red Cell Distribution Width 15.6 H 10.0-14.5 % Platelet Count 410 H 130-400 10^3/uL Mean Platelet Volume 9.9 9.0-12.2 fL Immature Granulocyte % (Auto) 1 % Neutrophils (%) (Auto) 70 42-75 % Lymphocytes (%) (Auto) 21 12-44 % Monocytes (%) (Auto) 6 0-12 % Eosinophils (%) (Auto) 2 0-10 % Basophils (%) (Auto) 1 0-10 % Neutrophils # (Auto) 9.6 H 1.8-7.8 10^3/uL Lymphocytes # (Auto) 2.8 1.0-4.0 10^3/uL Monocytes # (Auto) 0.9 0.0-1.0 10^3/uL Eosinophils # (Auto) 0.2 0.0-0.3 10^3/uL Basophils # (Auto) 0.1 0.0-0.1 10^3/uL Immature Granulocyte # (Auto) 0.1 0.0-0.1 10^3/uL Sodium Level 137 135-145 MMOL/L Potassium Level 4.4 3.6-5.0 MMOL/L Chloride Level 101 98-107 MMOL/L Carbon Dioxide Level 22 21-32 MMOL/L Anion Gap 14 5-14 MMOL/L Blood Urea Nitrogen 19 H 7-18 MG/DL Creatinine 0.96 0.60-1.30 MG/DL Estimat Glomerular Filtration Rate 58 BUN/Creatinine Ratio 20 Glucose Level 105 70-105 MG/DL Calcium Level 9.9 8.5-10.1 MG/DL Magnesium Level 2.0 1.6-2.4 MG/DL Thyroid Stimulating Hormone (TSH) 1.57 0.35-4.94 UIU/ML Free Thyroxine 1.11 0.70-1.48 NG/DL My Orders Orders - PROMISE BOLIVAR MD Ua Culture If Indicated (07/13/22 08:40) Basic Metabolic Panel (07/13/22 08:48) Cbc With Automated Diff (07/13/22 08:48) Magnesium (07/13/22 08:48) Ed Iv/Invasive Line Start (07/13/22 08:48) Thyroid Stimulating Hormone (07/13/22 08:49) Free T4 (Free Thyroxine) (07/13/22 08:49) Urine Culture (07/13/22 08:40) Chest 1 View Ap/Pa Only (07/13/22 09:04) Ceftriaxone 1 Gm Pre-Mix (Rocephin 1 Gm (07/13/22 09:41) Vital Signs/I&O 07/13/22 07/13/22 08:40 10:08 Temp 36.5 36.5 Pulse 84 76 Resp 16 16 B/P (MAP) 130/69 (89) 71/69 Pulse Ox 96 97 O2 Delivery Room Air Room Air Capillary Refill : Less Than 3 Seconds Blood Pressure Mean: 89 Progress Note : Progress Note Labs were reviewed in their entirety and interpreted by me including CBC, BMP, urinalysis, magnesium, and thyroid studies. There was mild leukocytosis noted. Chemistry studies were unremarkable. Urinalysis demonstrated subtle suggestion of pyuria with white blood cells present. Chest x-ray was obtained. There is significant density in the left lower lung consistent with infiltrate and possibly pleural effusion. Patient to my interpretation the radiologist report was also reviewed as below. Patient was suspected of having pneumonia and urinary tract infection. Treatment was initiated with Rocephin and antibiotic prescription was provided. I stressed the importance of follow-up for repeat chest x-ray and review of cultures. See discharge instructions for further discussion. Cerumen impaction was noted in the left ear. Caregiver reports they have been treating that with eardrops with the intent of loosening the wax in preparation for irrigation. Diagnostic Imaging Diagonstic Imaging: Xray Plain Films/CT/US/NM/MRI: chest Comments NAME: [facility] REC#: [id number] PT STATUS: DEP ER : 1935 PHYSICIAN: PROMISE BOLIVAR MD ADMIT DATE: 07/13/22/ER FS Signed Date of Exam:07/13/22 CHEST 1 VIEW AP/PA ONLY Indication: Fall with bruising in the left rib region. Time of Exam: 9:08 AM Correlation is made with prior chest from 02/03/2020. Heart remains enlarged. There is some infiltrate in the right base medially. A left base is largely obscured by the enlarged heart. There is some questionable trace left pleural fluid. The mid and upper lung padilla are clear. There is no pneumothorax identified. Osseous structures are unremarkable. IMPRESSION: Cardiomegaly with patchy infiltrate or atelectasis in the right base. There is also questionable minimal left pleural fluid. Dictated by: Dictated on workstation # [id number] Dict: 07/13/22 0929 Trans: 07/13/22 1626 [facility] [id number] Interpreted by: JING OCONNOR MD Electronically signed by: JING OCONNOR MD 07/13/22 1626 Departure Impression Primary Impression: Urinary tract infection Qualified Codes: N39.0 - Urinary tract infection, site not specified Additional Impressions: Generalized weakness Pleural effusion, left Pulmonary infiltrate Hypothyroidism Qualified Codes: E03.9 - Hypothyroidism, unspecified Hard of hearing Qualified Codes: H91.93 - Unspecified hearing loss, bilateral Impacted cerumen of left ear Disposition: 01 HOME, SELF-CARE Condition: Improved Departure-Patient Inst. Decision time for Depature: 09:55 Referrals: ANGEL LINDA MD (PCP/Family) Primary Care Physician Patient Instructions: Pleural Effusion, Hearing Loss in Adults, Urinary Tract Infection, Adult ED Add. Discharge Instructions: Drink plenty of clear liquids to stay well-hydrated. Complete your antibiotic as prescribed. Follow-up with Dr. Linda early next week to review urine culture results and results of the thyroid studies. Continue using the drops to loosen earwax as previously directed. If necessary, irrigation can be used in the clinic to attempt washing out the earwax. After your antibiotics are complete, you should have another follow-up appointment with Dr. Linda as well as a repeat two-view chest x-ray to be sure the pneumonia and fluid on your left lung resolve. Return to the emergency room if symptoms worsen. All discharge instructions reviewed with patient and/or family. Voiced understanding. Scripts Azithromycin (Azithromycin) 250 Mg Tablet 250 MG PO UD, #6 TAB TAKE 2 TABLETS ON DAY ONE THEN TAKE 1 TABLET DAILY FOR FOUR MORE DAYS Prov: PROMISE BOLIVAR MD 07/13/22 Cefdinir (Cefdinir) 300 Mg Capsule 300 MG PO BID, #20 CAP 0 Refills May substitute Ceftin 500 mg bid x 10 days if Cefdinir not available. Prov: PROMISE BOLIVAR MD 07/13/22 Copy Copies To 1: ANGEL LINDA MD, JOSHUA T MD Jul 13, 2022 10:00
[2022-07-13] MEDS ORDERED: AZIT250T12 PO (10:02)
[2022-07-13] MEDS ORDERED: CEFD300C3 PO (10:02)
[2022-07-13 10:08] VITALS: BP 71/69
[2022-07-13 14:39] LABS: FREE T4 (FREE THYROXINE) 1.11 NG/DL (0.70-1.48)
== END 2022-07-13 10:09 | disposition home or self-care (01) ==
LOC: EDUNIT# 08:32 → ER FS 08:33
DX: N39.0 Urinary tract infection, site not specified (principal); J90 Pleural effusion, not elsewhere classified; E03.9 Hypothyroidism, unspecified; R91.8 Other nonspecific abnormal finding of lung field; H61.22 Impacted cerumen, left ear; R53.1 Weakness; J44.9 Chronic obstructive pulmonary disease, unspecified; Z28.310 Unvaccinated for COVID-19
CPT/HCPCS: 36415; 71045; 80048; 81000; 83735; 84439; 84443; 85025; 87088